=== PATIENT | male | born 2005 | race Two or more races ===

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

== ENCOUNTER 2023-08-03 05:57 | Emergency (ER) | payer MEDICAID, OTHER ==
[~2023-08-03] VITALS: Ht 180.3 cm; Wt 106.6 kg
[2023-08-03 06:13] VITALS: BP 142/74; TEMP 98.6; O2SAT 99
[2023-08-03] MEDS ORDERED: IBUPROFEN 600 MG TABLET ONE (06:17)
[2023-08-03] MEDS ORDERED: AMOX500C2 PO (06:25)
[2023-08-03] MEDS ORDERED: IBUP-1955 PO (06:25)
[2023-08-03] MEDS ORDERED: IBUPROFEN 600 MG TABLET PO ONE (06:30)
== END 2023-08-03 06:34 | disposition home or self-care (01) ==
LOC: ER 05:59
DX: H66.92 Otitis media, unspecified, left ear (principal)

== ENCOUNTER 2023-11-09 09:40 | Emergency (ER) | payer MEDICAID ==
[~2023-11-09] VITALS: Ht 182.9 cm; Wt 71.2 kg
[~2023-11-09 09:40] MED LIST changes: +AMOX500C2 PO; +IBUP-1955 PO
[2023-11-09] MEDS ORDERED: CEPHALEXIN MONOHYDRATE 500 MG CAPSULE PO ONE (10:28)
[2023-11-09] MEDS: CEPHALEXIN MONOHYDRATE 500 MG CAPSULE PO ONE (10:30)
[2023-11-09] MEDS ORDERED: CEPH500C2 PO (10:36)
[2023-11-09 10:47] VITALS: BP 123/67; TEMP 97.7; O2SAT 98
== END 2023-11-09 10:47 | disposition home or self-care (01) ==
LOC: ER 09:48
DX: L03.115 Cellulitis of right lower limb (principal); F32.A Depression, unspecified; Z98.890 Other specified postprocedural states; Z79.899 Other long term (current) drug therapy

== ENCOUNTER 2024-08-27 22:40 | Emergency (ER) | payer MEDICAID, OTHER ==
[~2024-08-27] VITALS: Ht 182.9 cm; Wt 93.0 kg
[~2024-08-27 22:40] MED LIST changes: +CEPH500C2 PO
[2024-08-27 22:59] VITALS: BP 147/74; TEMP 98.1; O2SAT 98
== END 2024-08-27 23:50 | disposition home or self-care (01) ==
LOC: ER 22:51
DX: M79.645 Pain in left finger(s) (principal); Z48.00 Encounter for change or removal of nonsurgical wound dressing; Z79.1 Long term (current) use of non-steroidal anti-inflammatories (NSAID)